=== PATIENT | female | born 1950 | race Caucasian/White ===

== ENCOUNTER 2020-06-25 06:35 | Day surgery (SDC) | payer MEDICARE, OTHER ==
[~2020-06-25] VITALS: Ht 167.6 cm; Wt 90.7 kg
[~2020-06-25 06:35] MED LIST: ALENDRONATE SODI5 MG PO; AMLODIPINE BESY10 MG PO; BUPROPION XL300 MG PO; CITALOPRAM HBR40 MG PO; CLONIDINE HCL0.2 MG PO; LISINOPRIL-HCT1 EACH PO; LISINOPRIL20 MG PO; METOPROLOL TART50 MG PO; NORCO 10-325 T1 EACH PO; NORCO 5-325 TA1 EACH PO; SIMVASTATIN20 MG PO; ULTRAM50 MG PO
--- NOTE | 2020-06-25 08:05 | NUR ---
06/25/20 0805 Traci Harrison 0756 PT ARRIVED TO PACU ON 10L VIA MASK, VSS. 0804 PT WAKES EASILY AND DENIES PAIN AND NAUSEA. O2 REMOVED. PT RESTING IN BED WITH NO CONCERNS AT THIS TIME.
--- NOTE | 2020-06-25 11:37 | OR ---
[facility] [address], [place] [address] Signed DATE OF OPERATION: 06/25/2020 SURGEON: Jaycob Rodriguez MD PREOPERATIVE DIAGNOSES: 1. Personal history of colon polyps. 2. Personal history of rectal polyps. 3. Tattoo at 10 cm. 4. Diverticulosis. 5. Polyp at base of ileocecal valve. POSTOPERATIVE DIAGNOSES: 1. 4 x 6 mm sessile cecal polyp/base of ileocecal valve. 2. 5 mm sessile polyp at 40 cm. 3. 3 mm polyps x2 at 7 cm. 4. Rectal tattoo at 10 cm. 5. Minimal sigmoid diverticulosis. PROCEDURE: Colonoscopy with hot biopsy. ESTIMATED BLOOD LOSS: None. INDICATIONS: Emi is a 69-year-old female who 1st came in June 2018 for her initial screening colonoscopy. She had an adenomatous polyp of 4 cm and a tubulovillous adenomatous polyp at 10 cm. We left a tattoo at 10 cm and we found that to be in the posterior midline slightly off the left side with a rigid proctoscope. She also had a sessile polypoid cobblestone adenomatous lesion near the base of her ileocecal valve. That was much larger and more difficult to deal with from a technical standpoint based on its location. We brought her back in January of 2019 and repeated her colonoscopy and felt that we probably got most of the polyp at the ileocecal valve. We took additional tissue at 10 cm and a tiny polyp back at 15 cm on that occasion. The tissue at the ileocecal valve once again was a serrated adenomatous polyp and the other two areas were hyperplastic tissue. She always has a low diverticulosis. We have had her come back now about a year later for followup. She said she has no significant lower GI complaints. In the office, I gave her another pamphlet on colonoscopy. Of course she understands that quite well at this point in time. She understands there is risk including, but not limited to gas bloating, crampy abdominal pain, bleeding, perforation Electronically Signed By: JAYCOB RODRIGUEZ MD 06/25/20 1137 PATIENT NAME: DANA LYNCH OPERATIVE REPORT DATE OF : 52 REPORT #: [id number] PHYSICIAN: JAYCOB RODRIGUEZ MD PCP: LYNDSAY CARSON MD REPORT IS CONFIDENTIAL AND NOT TO BE RELEASED WITHOUT AUTHORIZATION [facility] [address], [place] [address] Signed requiring surgery, and missed diagnosis. 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 We always asked an anesthesia provider to help with increased monitoring sedation with propofol. That always proved to be rudolph and once again proved rudolph today. She had expressed understanding and wished to proceed. DESCRIPTION OF PROCEDURE: Dana was taken into our endoscopy suite and placed in the left lateral decubitus position. She was placed under LMA anesthesia by our nurse highway painter helper. A digital rectal exam was then performed and this was unremarkable. The adult colonoscope was introduced and advanced all around into the cecum under direct visualization of camera. Her sigmoid colon is always a bit narrow and took a few minutes and then the rest of the endoscopy was quite easy. Her prep was quite good. We could easily see the appendiceal orifice. On this occasion, the lesion near the base of the ileocecal valve was rotated 180 degrees and it gave us excellent visualization of that entire lesion. She had just a little bit of adenomatous tissue along the fold measuring probably 4 mm wide, maybe 6 or 7 mm in length. We took several biopsies of this and we destroyed that lesion thoroughly with our cautery. We taken several pictures to show that the lesion is immediately between the ileocecal cecal valve and the appendiceal orifice. After that, the scope was then slowly withdrawn. We found a small polyp back at 40 cm and a couple small tiny polyps in the rectum. All easily removed with a hot biopsy forceps. We examined the area of the tattoo at 10 cm and it appeared to be quite unremarkable. The scope was then retroflexed and there was no additional pathology noted above the anal canal. After this, the gas was suctioned out and the colonoscope removed. Dana tolerated the procedure quite well. RECOMMENDATIONS: Dana will follow up in 7 to 14 days to review her results. I suspect we can repeat her colonoscopy in about three years based on our current endoscopic findings. Jaycob Rodriguez MD ALB/MODL /[id number] cc: Jaycob Rodriguez MD Electronically Signed By: JAYCOB RODRIGUEZ MD 06/25/20 1137 PATIENT NAME: DANA LYNCH OPERATIVE REPORT DATE OF : 52 REPORT #: [id number] PHYSICIAN: JAYCOB RODRIGUEZ MD PCP: LYNDSAY CARSON MD REPORT IS CONFIDENTIAL AND NOT TO BE RELEASED WITHOUT AUTHORIZATION [facility] [address] [place], [place] [address] Signed Lyndsay Carson MD Copies: JAYCOB RODRIGUEZ MD ~ Electronically Signed By: JAYCOB RODRIGUEZ MD 06/25/20 1137 PATIENT NAME: DANA LYNCH OPERATIVE REPORT DATE OF : 52 REPORT #: [id number] PHYSICIAN: JAYCOB RODRIGUEZ MD PCP: LYNDSAY CARSON MD REPORT IS CONFIDENTIAL AND NOT TO BE RELEASED WITHOUT AUTHORIZATION
--- NOTE | 2020-06-28 16:29 | PATH ---
[facility] [address], [place] [address] Signed SPECIMEN(S): A COLON POLYP AT 7 CM SPECIMEN(S): B CECAL POLYP SPECIMEN(S): C COLON POLYP AT 40 CM SPECIMEN SOURCE: A. COLON POLYP AT 7 CM B. CECAL POLYP C. COLON POLYP AT 40 CM CLINICAL HISTORY: Colonoscopy. Diverticulosis, colon polyps. MICROSCOPIC DESCRIPTION: Histologic sections of all submitted blocks are examined by light microscopy. These findings, together with the gross examination, support the pathologic diagnosis. FINAL PATHOLOGIC DIAGNOSIS: A. Colon, polyp at 7 cm, polypectomy: - Fragments of colonic mucosa with no histopathologic abnormality. - Negative for dysplasia or malignancy. B. Colon, cecum, polyp, polypectomy: - Fragments of tubular adenoma. - Negative for high-grade dysplasia or malignancy. C. Colon, polyp at 40 cm, polypectomy: - Tubular adenoma. - Negative for high-grade dysplasia or malignancy. NAL:cml:C2NR GROSS DESCRIPTION: Three specimens are received in three containers, labeled "KH." A. The specimen, labeled "KH, 1," and designated on the requisition "colon polyp at 7 cm," is received in formalin and consists of two morley soft tissue fragments that measure 0.3 cm in greatest dimension. The specimen is entirely submitted in cassette (A1). B. The specimen, labeled "KH, 2," and designated on the requisition "cecal polyp," is received in formalin and consists of multiple morley soft tissue fragments that measure 0.3 cm in greatest dimension. The specimen is entirely submitted in cassette (B1). C. The specimen, labeled "KH, 3," and designated on the requisition "colon polyp at 40 cm," is received in formalin and consists of one minute morley soft tissue fragment that measures 0.2 cm in PATIENT NAME: JUSTA LYNCH PATHOLOGY DATE OF : 52 REPORT #: [id number] PHYSICIAN: SHAWN PATHOLOGY PCP: MONICA CARSON MD REPORT IS CONFIDENTIAL AND NOT TO BE RELEASED WITHOUT AUTHORIZATION [facility] [address], [place] [address] Signed greatest dimension. The specimen is entirely submitted in cassette (C1). AT (under the direct supervision of a pathologist) The Gross Description was prepared using a voice recognition system. The report was reviewed for accuracy; however, sound-alike word errors, addition and/or deletions may occur. If there is any question about this report, please contact Client Services. PERFORMING LABORATORY: The technical component was performed by [facility], [address] [place] [id number] (Pipe Turner: Fadia Daugherty MD; CLIA# [id number]). [facility], [address] [address] (CLIA# [id number]). Diagnostician: Mirta Martin MD Pathologist Electronically Signed 06/28/2020 Copies: ~ PATIENT NAME: JUSTA LYNCH PATHOLOGY DATE OF : 52 REPORT #: [id number] PHYSICIAN: SHAWN ALCANTARA PCP: MONICA CARSON MD REPORT IS CONFIDENTIAL AND NOT TO BE RELEASED WITHOUT AUTHORIZATION
== END 2020-06-25 08:42 | disposition home or self-care (01) ==
LOC: OPS 06:35 → DS 06:35 → OPS 06:45
PROVIDERS: ATTEND Colon & Rectal Surgery
PROC: 0DBE8ZZ Excision of Large Intestine, Via Natural or Artificial Opening Endoscopic (ICD-10-PCS; 2020-06-25)
PROC: 0DBH8ZZ Excision of Cecum, Via Natural or Artificial Opening Endoscopic (ICD-10-PCS; principal; 2020-06-25 06:45)
DX: D12.0 Benign neoplasm of cecum (principal); K57.30 Diverticulosis of large intestine without perforation or abscess without bleeding; I10 Essential (primary) hypertension; K21.9 Gastro-esophageal reflux disease without esophagitis; F32.9 Major depressive disorder, single episode, unspecified; F41.9 Anxiety disorder, unspecified; E66.9 Obesity, unspecified; Z86.010 Personal history of colon polyps; Z79.899 Other long term (current) drug therapy; Z68.32 Body mass index [BMI] 32.0-32.9, adult; Z87.891 Personal history of nicotine dependence
CPT/HCPCS: J2704; J7121

== ENCOUNTER 2022-08-17 12:26 | Emergency (ER) | payer MEDICARE, OTHER ==
[~2022-08-17] VITALS: Ht 167.6 cm; Wt 90.7 kg
[2022-08-17] MEDS ORDERED: CHLORTHALIDONE25 MG PO (14:14)
== END 2022-08-17 17:23 | disposition home or self-care (01) ==
LOC: ED 12:26
DX: S39.012A Strain of muscle, fascia and tendon of lower back, initial encounter (principal); S00.93XA Contusion of unspecified part of head, initial encounter; I10 Essential (primary) hypertension; Z87.891 Personal history of nicotine dependence; Z79.899 Other long term (current) drug therapy; W18.30XA Fall on same level, unspecified, initial encounter
CPT/HCPCS: 70450; 72100; 99284-25

== ENCOUNTER 2024-07-09 03:59 | Emergency (ER) | payer MEDICARE, OTHER ==
[~2024-07-09] VITALS: Ht 167.6 cm; Wt 96.0 kg
[~2024-07-09 03:59] MED LIST changes: +CHLORTHALIDONE25 MG PO
[2024-07-09 04:26] LABS: BASOPHILS 1.6 % (0-2); EOSINOPHILS 6.6 % (0-6); HEMOGLOBIN 12.8 g/dL (12.0-18.0); LYMPHOCYTES 32.4 % (24-44); MCH 30.2 (27-36); MCHC 32.7 g/dl (30-36); MCV 92.3 fl (81-99); MONOCYTES 7.5 % (0-12); NEUTROPHILS 51.9 % (39-80); PLATELET COUNT 145 K/uL (140-440); RBC 4.22 M/ul (4.3-5.7); RDW 13.9 (10.5-15.0)
[2024-07-09 04:39] LABS: ALBUMIN 3.1 g/dL (3.4-5.0); ALBUMIN/GLOBULIN RATIO 1.03 (1.1-2.4); ALCOHOL, MEDICAL <3 ng/dL (<3); ALKALINE PHOSPHATASE 86 U/L (46-116); ALT (SGPT) 16 U/L (14-59); ANION GAP 11.4 (7-21); AST (SGOT) 18 U/L (15-37); BILIRUBIN, TOTAL 0.7 ng/dL (0.2-1.0); BUN/CREATININE RATIO 18.39 (6.0-28.6); CALCIUM 9.8 mg/dL (8.5-10.1); CARBON DIOXIDE 27 mmol/L (21-32); CHLORIDE 105 mmol/L (98-107); CREATININE, SERUM 2.61 mg/dL (0.55-1.02); GLOMERULAR FILTRATION RATE,EST 19 mL/min (>60); POTASSIUM 4.4 mmol/L (3.5-5.1); PROTEIN, TOTAL 6.1 g/dL (6.4-8.2); UREA NITROGEN 48 mg/dL (7-18)
[2024-07-09] MEDS ORDERED: LACTATED RINGER'S 1,000 ML IV ONE (05:45)
[2024-07-09 06:50] VITALS: BP 122/78
== END 2024-07-09 06:55 | disposition home or self-care (01) ==
LOC: ED 03:59
PROVIDERS: Family Medicine
DX: S00.03XA Contusion of scalp, initial encounter (principal); S83.91XA Sprain of unspecified site of right knee, initial encounter; W06.XXXA Fall from bed, initial encounter; Y92.099 Unspecified place in other non-institutional residence as the place of occurrence of the external cause; G30.9 Alzheimer's disease, unspecified; F02.80 Dementia in other diseases classified elsewhere, unspecified severity, without behavioral disturbance, psychotic disturbance, mood disturbance, and anxiety; E78.5 Hyperlipidemia, unspecified; I12.9 Hypertensive chronic kidney disease with stage 1 through stage 4 chronic kidney disease, or unspecified chronic kidney disease; N18.9 Chronic kidney disease, unspecified; Z79.899 Other long term (current) drug therapy
CPT/HCPCS: 36415; 70450; 72125; 72170; 73560; 73590; 80053; 80307; 85025; 99284-25; G0480; J7121

== ENCOUNTER 2024-12-05 15:14 | Emergency (ER) | payer MEDICARE, OTHER ==
[~2024-12-05] VITALS: Ht 167.6 cm; Wt 89.8 kg
[2024-12-05] MEDS ORDERED: LO-DOSE ASPIRIN81 MG PO (18:23)
[2024-12-05] MEDS ORDERED: ARIPIPRAZOLE5 MG PO (18:23)
[2024-12-05] MEDS ORDERED: DONEPEZIL HCL10 MG PO (18:23)
[2024-12-05] MEDS ORDERED: ATORVASTATIN CA20 MG PO (18:23)
[2024-12-05 20:46] LABS: BILIRUBIN, URINE NEGATIVE (negative); BLOOD/HGB, URINE NEGATIVE (Negative); KETONE, URINE NEGATIVE (Negative); LEUK ESTERASE, URINE MODERATE (negative); NITRITE, URINE POSITIVE (negative)
[2024-12-05 20:51] LABS: BACTERIA, URINE 2+ /hpf (negative); CRYSTALS, URINE NONE SEEN (0-1+); EPITHELIAL CELLS, URINE SQUAMOUS 1+ /lpf (0-1+); RED BLOOD CELLS, URINE 0-1 /hpf (0-5); WHITE BLOOD CELLS, URINE 41-50 /HPF (0-5)
[2024-12-05 20:52] LABS: CASTS, URINE NONE SEEN \\lpf; COLLECTION TYPE, URINE CLEAN CATCH; REFLEX CULTURE, URINE Yes (No)
[2024-12-05] MEDS ORDERED: MACROBID 100 M100 MG PO (20:55)
[2024-12-05] MEDS ORDERED: NITROFURANTOIN MONOHYD MACROCR 100 MG HOME.PACK PO ONE (21:00)
[2024-12-05 21:20] VITALS: BP 134/99
== END 2024-12-05 21:20 | disposition home or self-care (01) ==
LOC: ED 15:14
PROVIDERS: Emergency Medicine
DX: N39.0 Urinary tract infection, site not specified (principal); M25.552 Pain in left hip; M25.562 Pain in left knee; G30.9 Alzheimer's disease, unspecified; F02.80 Dementia in other diseases classified elsewhere, unspecified severity, without behavioral disturbance, psychotic disturbance, mood disturbance, and anxiety; I12.9 Hypertensive chronic kidney disease with stage 1 through stage 4 chronic kidney disease, or unspecified chronic kidney disease; N18.9 Chronic kidney disease, unspecified; E78.5 Hyperlipidemia, unspecified; Z87.891 Personal history of nicotine dependence; Z79.82 Long term (current) use of aspirin; Z79.899 Other long term (current) drug therapy; Z91.81 History of falling; W19.XXXA Unspecified fall, initial encounter
CPT/HCPCS: 73502; 73560; 81001; 99283

== ENCOUNTER 2025-07-28 08:12 | Emergency (ER) | payer MEDICARE, OTHER ==
[~2025-07-28] VITALS: Ht 167.6 cm; Wt 90.5 kg
[~2025-07-28 08:12] MED LIST changes: +ARIPIPRAZOLE5 MG PO; +ATORVASTATIN CA20 MG PO; +DONEPEZIL HCL10 MG PO; +LO-DOSE ASPIRIN81 MG PO; +MACROBID 100 M100 MG PO
[2025-07-28] MEDS ORDERED: CARBIDOPA-LEVO1 EAC1 PO (08:42)
[2025-07-28] MEDS ORDERED: SODIUM CHLORIDE 0.9% 500 ML IV PRN (09:00)
[2025-07-28] MEDS ORDERED: ACETAMINOPHEN 325 MG TAB PO ONE (09:30)
[2025-07-28 09:33] LABS: BASOPHILS 0.6 % (0.1-1.2); EOSINOPHILS 1.2 % (0.7-5.8); LYMPHOCYTES 15.7 % (19.3-51.7); MCH 30.4 PG (25.6-32.2); MCHC 32.7 g/dL (32.2-35.5); MCV 92.8 fL (79.4-94.8); MONOCYTES 9.4 % (4.7-12.5); NEUTROPHILS 72.5 % (34.0-71.1); RBC 4.18 M/uL (3.93-5.22)
[2025-07-28 09:52] LABS: ALT (SGPT) 5.0 U/L (14-59); AST (SGOT) 18.0 U/L (15-37); GLOMERULAR FILTRATION RATE,EST 21.0 mL/min (>60); PROTEIN, TOTAL 6.2 g/dL (6.4-8.2); UREA NITROGEN 58.0 mg/dL (7-18)
[2025-07-28 10:57] VITALS: BP 156/87
== END 2025-07-28 10:42 | disposition home or self-care (01) ==
LOC: ED 08:12
PROVIDERS: Emergency Medicine
DX: R19.7 Diarrhea, unspecified (principal); I12.9 Hypertensive chronic kidney disease with stage 1 through stage 4 chronic kidney disease, or unspecified chronic kidney disease; E11.9 Type 2 diabetes mellitus without complications; E78.5 Hyperlipidemia, unspecified; Z88.8 Allergy status to other drugs, medicaments and biological substances; Z87.891 Personal history of nicotine dependence
CPT/HCPCS: 36415; 80053; 85025; 99284; A9270; J7040